=== PATIENT | female | born 1930 | race Caucasian/White ===

== ENCOUNTER → 2016-07-20 | Outpatient (CLI) | payer OTHER, MEDICARE ==
[2016-07-20 12:03] LABS: HEMATOCRIT 39.1 % (37.0-47.0); HEMOGLOBIN 12.8 g/dL (12.0-16.0); MEAN CORPUSCULAR HEMOGLOBIN 28.4 PG (27-31); MEAN CORPUSCULAR HGB CONC 32.7 g/dL (33-37); MEAN PLATELET VOLUME 10.5 FL (7.4-12.2); RDW COEFFICIENT OF VARIATION 14.6 % (11.5-14.5); RED BLOOD COUNT 4.51 10^6/uL (4.20-5.40); WHITE BLOOD COUNT 6.3 10^3/uL (4.8-10.8)
[2016-07-20 12:06] LABS: BLOOD UREA NITROGEN 23 mg/dL (7-22); BUN/CREATININE RATIO 14.37 (6-20); CALCIUM 9.7 mg/dL (8.7-10.7); CHLORIDE 108 meq/L (98-112); CREATININE 1.6 mg/dL (0.50-1.20); GLUCOSE 89 mg/dL (78-110); PHOSPHORUS 4.4 mg/dl (2.4-4.3); POTASSIUM 4.4 meq/L (3.8-5.2); SODIUM 142 meq/L (135-145)
== END ==
LOC: LAB 10:57
PROVIDERS: ATTEND Physician Assistant Medical
DX: I12.9 Hypertensive chronic kidney disease with stage 1 through stage 4 chronic kidney disease, or unspecified chronic kidney disease (principal); N18.3 Chronic kidney disease, stage 3 (moderate); D63.1 Anemia in chronic kidney disease; N25.81 Secondary hyperparathyroidism of renal origin
CPT/HCPCS: 36415; 80069; 83970; 85027

== ENCOUNTER → 2016-11-16 | Outpatient (CLI) | payer OTHER, MEDICARE ==
[2016-11-16 11:58] LABS: HEMOGLOBIN 13.2 g/dL (12.0-16.0); MEAN CORPUSCULAR HEMOGLOBIN 28.6 PG (27-31); MEAN CORPUSCULAR VOLUME 86.8 FL (81-99); MEAN PLATELET VOLUME 10.5 FL (7.4-12.2); RED BLOOD COUNT 4.61 10^6/uL (4.20-5.40)
[2016-11-16 12:12] LABS: BLOOD UREA NITROGEN 15 mg/dL (7-22); CALCIUM 8.9 mg/dL (8.7-10.7); PHOSPHORUS 3.8 mg/dl (2.4-4.3); SERUM ALBUMIN 4.1 g/dL (3.5-4.8)
== END ==
LOC: LAB 11:07
PROVIDERS: ATTEND Physician Assistant Medical
DX: N18.3 Chronic kidney disease, stage 3 (moderate) (principal); D63.1 Anemia in chronic kidney disease; N25.81 Secondary hyperparathyroidism of renal origin
CPT/HCPCS: 36415; 80069; 83970; 85027

== ENCOUNTER → 2016-11-18 | Outpatient (CLI) | payer OTHER, MEDICARE | LOC: MMPC 11:11 | PROVIDERS: ATTEND Internal Medicine | DX: I10 Essential (primary) hypertension (principal); J44.9 Chronic obstructive pulmonary disease, unspecified; E55.9 Vitamin D deficiency, unspecified; E78.5 Hyperlipidemia, unspecified; M81.0 Age-related osteoporosis without current pathological fracture; N18.3 Chronic kidney disease, stage 3 (moderate) | CPT/HCPCS: 99214; G0463 ==

== ENCOUNTER → 2017-01-20 | Outpatient (CLI) | payer OTHER, MEDICARE | LOC: MMPC 10:00 | PROVIDERS: ATTEND Podiatrist Foot & Ankle Surgery | DX: L85.0 Acquired ichthyosis (principal); E11.628 Type 2 diabetes mellitus with other skin complications; L60.3 Nail dystrophy; L60.0 Ingrowing nail | CPT/HCPCS: 11721; 99203 ==

== ENCOUNTER 2017-05-11 11:00 | Inpatient (IN) ==
[2017-05-11] MEDS ORDERED: NORMAL SALINE 10 ML SYRINGE FLUSH IVP PRN ×2 (11:24→16:17)
[2017-05-11] MEDS ORDERED: Sodium Chloride 0.9% 1,000 ML PRIMARY IV ONE (11:24)
[2017-05-11] MEDS ORDERED: ONDANSETRON 4 MG/2 ML VIAL IVP ONE (11:24)
--- NOTE | 2017-05-11 11:35 | PDOC ---
General Adult HPI - General Chief Complaint: Cough / URI Stated Complaint: COUGH, NOT FEELING GOOD Date Seen by Provider: 05/11/17 Time Seen by Provider: 11:20 Source: POSITIVE: Patient, Other (daughter) Exam Limitations: POSITIVE: No limitations Nurse's Notes Reviewed & Considered: Yes - History of Present Illness Initial Comment: The patient is an 86-year-old female who presents to the emergency department with sore throat, cough and general malaise. She has a history of hypertension and chronic renal insufficiency. She states that yesterday she developed a sore throat as well as some general malaise. She also has had increased nasal congestion and drainage in the back of her throat. Last night and this morning she has had some cough which is productive at times. She denies any chest pain or increased shortness of breath. She did have one bout of diarrhea last night. Shortly after arriving in the emergency department she had onset of nausea and emesis. She states that she was feeling chilled at home. She denies any known fever. She denies any associated abdominal pain. Have you received a tetanus shot in the past 10 years?: No - Patient Home Medications Home Medications: Home Medications Levalbuterol Tartrate [Xopenex Hfa] 2 puff INH Q4-6H PRN #1 inh 08/11/16 ipratropium bromide 0.03 % nasal spray 2 spray INASL TID PRN #1 ml 02/16/17 metoprolol succinate ER 25 mg tablet,extended release 24 hr 25 mg PO QHS #90 tab 02/16/17 sertraline 25 mg tablet 25 mg PO QDAY #90 tab 02/16/17 hydralazine 25 mg tablet 25 mg PO TID #180 tab 03/01/17 amlodipine 10 mg tablet 10 mg PO QDAY #90 tab 03/30/17 calcitriol 0.25 mcg capsule 0.25 mcg PO QDAY #90 cap 03/30/17 calcium carbonate 300 mg (750 mg) chewable tablet 300 mg PO QDAY tab 03/30/17 cholecalciferol (vitamin D3) 2,000 unit capsule 2,000 unit PO QDAY #90 cap 03/30 loratadine 10 mg capsule 10 mg PO QDAY cap 03/30/17 pravastatin 40 mg tablet 40 mg PO QDAY #90 tab 03/30/17 - Patient Allergies Allergies/Adverse Reactions: Allergies 3 Allergy/AdvReac Type Severity Reaction Status Date / Time butorphanol tartrate Allergy Severe personality Verified 05/11/17 11:38 [From Stadol] changes, anger codeine [Codeine] Allergy NOT Verified 05/11/17 11:38 APPLICABLE meperidine HCl [From Demerol] Allergy NOT Verified 05/11/17 11:38 APPLICABLE povidone-iodine Allergy NOT Verified 05/11/17 11:38 [From Betadine] APPLICABLE soap [From Betadine] Allergy NOT Verified 05/11/17 11:38 APPLICABLE Past Medical History - heen HEENT History: Macular Degeneration, Cataracts, Other (please comment) Additional HEENT History: cataract surgery Cardiovascular History: Hypertension Respiratory History: COPD Additional Respiratory History: previous smoker, quit 1 year ago Gastrointestinal History: Other (please comment) Additional Gastrointestinal History: DIARRHEA X1 WEEK Genitourinary History: Denies History Additional Genitourinary History: kidney failure Endocrine History: Denies History Musculoskeletal History: Rheumatoid Arthritis Neurological History: Denies History Blood Disorders: Denies History Psychiatric History: Denies History History of Sexually Transmitted Diseases: No Cancer History: Denies History History of MDRO: No History of Other Communicable Diseases: No Alcohol Use: None In the Past 12 Months, Have Used or Abuse Any Substance: None Previous Surgical History: Yes Type / Date of Surgery: GALLBLADDER,APPY, LAP KEE, RIGHT FOOT Anesthesia Reactions: No Significant Family History: No pertinent family hx Past Medical History Reviewed: Reviewed - No Changes ROS - Limitations ROS Limitations: No Limitations Constitution: REPORTS: Chills, Weakness (General weakness and malaise). DENIES : Fever Cardiovascular: DENIES: Chest Pain, Edema Respiratory: REPORTS: Cough Non Productive, Cough Productive. DENIES: Shortness Of Breath Neurological: DENIES: Headache, Numbness, Weakness (No focal weakness) Gastrointestinal: REPORTS: Nausea, Vomitting (1 on arrival here to the emergency room), Diarrhea (1 last night). DENIES: Abdominal Pain, Black Stools , Bloody Stools Musculoskeletal: DENIES: Muscle Aches Eyes: REPORTS: Denies Symptoms ENT: REPORTS: Denies Symptoms Skin: DENIES: Rash General Adult Exam - General Appearance General Appearance: POSITIVE: Alert, Cooperative, No Acute Distress - HEENT HEENT: POSITIVE: Head Inspection Nml, Eyes Inspection Nml, Ears Inspection Nml, Pharynx Inspect. Nml. NEGATIVE: Pharyngeal Erythema, Pharyngeal Exudate - Neck Neck: POSITIVE: Normal Inspection. NEGATIVE: Lymphadenopathy - Respiratory Respiratory: POSITIVE: No Respiratory Distress, Breath Sounds Normal, Other ( Her oxygen saturations were in the upper 80s on room air on arrival and she was placed on O2 per nasal cannula.) - Cardiovascular Cardiovascular: POSITIVE: Regular Rate & Rhythm, No Murmur Peripheral Pulses: Dorsalis-pedis (R): 2+, Dorsalis-pedis (L): 2+ - Abdomen Abdomen: Soft: (All Quadrants), Denies Tenderness: (All Quadrants), No Distention: (All Quadrants) - Skin Skin: POSITIVE: Normal Color, No Rash - Extremities Extremity: Normal ROM: (All Extremities), Normal Inspection: (All Extremities) - Neurological / Psychological Neurological: POSITIVE: Oriented X3, Motor Normal, Sensation Normal, Other (No focal neurologic deficits) General Adult Progress - Results Reviewed by me Xrays/CTs/US Reviewed by me: Yes Radiology Findings: Chest x-ray shows no obvious infiltrate, no acute changes when compared to previous Lab Results Reviewed by Me: Yes CBC and BMP: 05/11/17 12:55 05/11/17 11:24 EKG Interpretation:: POSITIVE: Normal Sinus Rhythm, Normal Rate, Normal QRS, Normal ST/T - Patient's Progress MDM / ED Course: The patient was afebrile on arrival. She was mildly hypoxic with O2 sats in the upper 80s on room air. She was placed on O2 per nasal cannula. Blood cultures and lactate were drawn with initial IV start. EKG shows normal sinus rhythm with no acute ST segment or T-wave changes. Lab work reveals an elevated white count of 17,000. Her creatinine is 2.2 which is down from 2.8 about a month ago. Lactate is normal. Her magnesium is a little bit low at 1.5. Her chest x-ray shows no obvious acute infiltrate however clinically I suspect she has an early pneumonia With hypoxia, elevated white count and productive cough. After blood cultures were drawn the patient did receive Rocephin and Zithromax. She also received 1 g of magnesium IV. I did discuss these findings with the patient and her daughter. At this point I did recommend admission for further treatment. The patient is in agreement with this plan. Dr. Trevizo has agreed to admit the patient for further care. - Consult Counseled: POSITIVE: Patient, Family, RE: Lab Results, RE: Radiology Results, RE : DX Patient Care Time - Estimated PCT Patient Care Time (In Minutes): 35 Vital Signs - Recent Vital Signs Vital Signs: Vital Signs (Last 8 hours) Pulse 05/11/17 11:45 68 - VS Reviewed Vital Signs Reviewed: Yes Discharge Clinical Impression: Pneumonia, Chronic renal failure, Hypoxia, Elevated WBC count Discharge Disposition: Admit to Inpatient Condition: Fair Follow Up With: POLO EDWARDS [Primary Care Provider] - Date Decision to Admit to Inpatient: 05/11/17 Time Decision to Admit to Inpatient: 14:00
--- NOTE | 2017-05-11 11:45 | EKG ---
[address] [address] Measurements Intervals [place] Rate: 68 P: 72 MT: 195 QRS: 69 QRSD: 110 T: 48 QT: 395 QTc: 413 Interpretive Statements WANDERING ATRIAL PACEMAKER WITH OCCASIONAL SUPRAVENTRICULAR PREMATURE COMPLEXES NONSPECIFIC ST-T [id number] Compared to ECG 11/29/2015 11:23:00 ST (T wave) deviation now present Sinus bradycardia no longer present Electronically Signed On 05-11-17 14:44:09 [facility] by Dionicio Romero [email or web address]
[2017-05-11 12:59] LABS: BASOPHILS % (AUTO) 0.5 % (0-1); EOSINOPHILS % (AUTO) 0.9 % (0-8); Hematocrit [HCT] 40.1 % (37.0-47.0); Hemoglobin [HGB] 13.6 g/dL (12.0-16.0); MEAN CORPUSCULAR HEMOGLOBIN 30.2 PG (27-31); MEAN CORPUSCULAR HGB CONC 33.8 g/dL (33-37); MEAN CORPUSCULAR VOLUME 89 FL (81-99); MEAN PLATELET VOLUME 7.9 FL (7.4-12.2); MONOCYTES % (AUTO) 8.5 % (5-15); NEUTROPHILS % (AUTO) 83.9 % (50-80); RED BLOOD COUNT 4.49 10^6/uL (4.20-5.40)
[2017-05-11 13:00] LABS: BASOPHILS # (AUTO) 0 10*3/UL; EOSINOPHILS # (AUTO) 0.15 10*3/UL; LYMPHOCYTES # (AUTO) 1.05 10*3/uL; MONOCYTES # (AUTO) 1.44 10*3/UL (0.3-0.8); NEUTROPHILS # (AUTO) 14.2 10*3/UL; PLATELET MORPHOLOGY COMMENT NORMAL MORPHOLOGY (NORM); RBC MORPHOLOGY COMMENT NORMAL MORPHOLOGY (NORM); WBC MORPHOLOGY COMMENT NORMAL MORPHOLOGY (NORM)
[2017-05-11 13:48] LABS: BLOOD UREA NITROGEN 23 mg/dL (7-22); BUN/CREATININE RATIO 10.45 (6-20)
[2017-05-11 13:49] LABS: MAGNESIUM 1.5 mg/dL (1.6-2.4); SERUM ALBUMIN 4.2 g/dL (3.5-4.8)
[2017-05-11] MEDS ORDERED: cefTRIAXone Inj 2 GM in Sodium Chloride 0.9% 100 ML IV SCH (14:00)
[2017-05-11] MEDS ORDERED: Magnesium Sulfate 1gm (Premix) 1 GM/100 ML BAG IV ONE (14:02)
[2017-05-11] MEDS ORDERED: cefTRIAXone Inj 2 GM in Sodium Chloride 0.9% 100 ML IV ONE (14:02)
--- NOTE | 2017-05-11 14:16 | DI ---
XR CXR 1VW,05/11/2017 11:24 AM: Clinical History: November 29, 2015 Previous Exam: None at this facility. Findings: A single frontal radiograph of the chest is obtained, and demonstrates clear lungs. The cardiomediast inum and bony thorax are unremarkable and unchanged from the prior exam taking into account the fact that this is an AP view rather than the PA view. Impression: No acute disease.
[2017-05-11] MEDS ORDERED: LIDOCAINE W/ SODIUM BICARB 0.5 ML SYR SUBD PRN (16:17)
[2017-05-11] MEDS ORDERED: IPRATROPIUM BROMIDE 0.5 mg/2.5 ML NEB PRN (16:17)
[2017-05-11] MEDS ORDERED: ONDANSETRON 4 MG/2 ML VIAL IVP PRN (16:17)
[2017-05-11] MEDS: CALCIUM CARBONATE 500 MG (TUMS) CHEWABLE TABLET PO SCH (17:00)
[2017-05-11] MEDS: HEPARIN 5000 UNIT/1 ML SUBCUT SCH (17:01)
--- NOTE | 2017-05-11 17:13 | DI ---
CT Chest WO Contrast,05/11/2017 4:17 PM: Clinical History: Cough and shortness of breath. Previous Exam: None at this facility. Findings: Multiple helically acquired CT images are obtained through the chest without contrast, and demonstrat e a complex hypodense mass within the left thyroid lobe. Peripheral vascular calcifications are noted throughout. Degenerative changes of the spine are also seen. Diffuse emphysematous changes are noted as well. There is no evidence of infiltrate nor effusion. A few coronary artery calcifications are seen. The upper abdomen is unremarkable. There is a hiatal hernia noted. Impression: Diffuse emphysematous changes without infiltrate nor effusion. Irregular hypodense mass within the left thyroid lobe. Recommend thyroid ultrasound for further evalu ation. Hiatal hernia.
[2017-05-11] MEDS ORDERED: methylPREDNISolone 125 MG/2 ML VIAL IVP ONE (17:39)
--- NOTE | 2017-05-11 17:39 | PDOC ---
HPI - History of Present Illness History of Present Illness: Very nice 86-year-old female was seen in the ER because of some sore throat and cough and generalized weakness over the last few days she also has chronic renal insufficiency her latest creatinine is 2.2 he was hired a time before also has some increased nasal congestion and drainage nasal drip and occasional cough which is productive breath developed some also nausea and vomiting and decided to be seen in the ER where she was found to have a white count of 17, 000 possible pneumonia on x-ray but on CT scan of the chest are no infiltrates or effusions and no emphysematous changes are most likely it will be a COPD exacerbation Past Medical History Medical History: Hypertension, COPD, allergies, hypercholesterolemia, depression Surgical History: Appendectomy gallbladder removal, surgery on her right foot Family History: Reviewed an Not Pertinent Tobacco Use: Former Smoker In the Past 12 Months, Have Used or Abuse Any of the Following Substance: None Medication / Allergies Home Medications: Home Medications Medication Instructions Recorded Confirmed Type Levalbuterol Tartrate [Xopenex Hfa] 2 puff INH Q4-6H PRN #1 inh 08/11/16 History ipratropium bromide 0.03 % nasal 2 spray INASL TID PRN #1 ml 02/16/17 05/11/17 History spray metoprolol succinate ER 25 mg 25 mg PO QHS #90 tab 02/16/17 05/11/17 Rx tablet,extended release 24 hr sertraline 25 mg tablet 25 mg PO QDAY #90 tab 02/16/17 05/11/17 Rx hydralazine 25 mg tablet 25 mg PO TID #180 tab 03/01/17 05/11/17 Rx amlodipine 10 mg tablet 10 mg PO QDAY #90 tab 03/30/17 05/11/17 Rx calcitriol 0.25 mcg capsule 0.25 mcg PO QDAY #90 cap 03/30/17 05/11/17 Rx calcium carbonate 300 mg (750 mg) 300 mg PO QDAY tab 03/30/17 05/11/17 History chewable tablet cholecalciferol (vitamin D3) 2,000 2,000 unit PO QDAY #90 cap 03/30/17 05/11/17 History unit capsule loratadine 10 mg capsule 10 mg PO QDAY cap 03/30/17 05/11/17 History pravastatin 40 mg tablet 40 mg PO QDAY #90 tab 03/30/17 05/11/17 Rx Allergies/Adverse Reactions: Allergies 3 Allergy/AdvReac Type Severity Reaction Status Date / Time butorphanol tartrate Allergy Severe personality Verified 05/11/17 11:38 [From Stadol] changes, anger codeine [Codeine] Allergy NOT Verified 05/11/17 11:38 APPLICABLE meperidine HCl [From Demerol] Allergy NOT Verified 05/11/17 11:38 APPLICABLE povidone-iodine Allergy NOT Verified 05/11/17 11:38 [From Betadine] APPLICABLE soap [From Betadine] Allergy NOT Verified 05/11/17 11:38 APPLICABLE Review of Systems - Review of Systems All Systems: Reviewed & No Additional Complaints Except as Stated - Respiratory Respiratory: REPORTS: Cough, Dyspnea At Rest - Cardiovascular Cardiovascular: DENIES: Chest Pain, Edema, Syncope - Gastrointestinal Gastrointestinal / Abdominal: REPORTS: Nausea, Vomiting, Diarrhea Exam - Vitals Vital Signs: Vital Signs Temperature 99.1 F Temperature Source Temporal Artery Scan Pulse Rate 87 Respiratory Rate 17 Blood Pressure 179/62 Pulse Ox 94 Oxygen Flow Rate 3 Oxygen Delivery Method Nasal Cannula Height 5 ft Weight 142 lb 12.8 oz - General General Appearance: No Acute Distress, Cooperative - Neck Neck Exam: Normal Inspection, Full ROM, No Tenderness, No Lymphadenopathy, No Thyromegaly, JVP is not Raised - Respiratory Respiratory Exam: POSITIVE: Decreased Breath Sounds - Cardiovascular Cardiovascular Exam: POSITIVE: RRR, No Murmur, No Clicks, No Gallops, No Rubs, PMI Non-Displaced - GI/Abdominal GI/Abdominal Exam: POSITIVE: Normal Bowel Sounds, Non Tender, Non Distended, Soft, No Masses, No Hepatomegaly, No Splenomegaly, No Organomegaly - Extremities Extremities Exam: POSITIVE: Normal Inspection, Full ROM, Normal Capillary Refill , No Clubbing Present, No Edema Present, No Cyanosis Present, Negative Mt's sign, Dosalis Pedis Pulses - Stong & Regular Results - Labs CBC and BMP: 05/11/17 12:55 05/11/17 11:24 Assessment and Plan - Patient Problems (1) Chronic renal failure Current Visit: Yes Status: Acute Comment: We'll hydrate the patient with normal saline C breathing at this improved a little bit Code(s): N18.9 - Chronic kidney disease, unspecified (2) Elevated WBC count Current Visit: Yes Status: Acute Comment: Most likely secondary to COPD exacerbation Code(s): D72.829 - Elevated white blood cell count, unspecified (3) Abnormal CT scan, chest Current Visit: No Status: Acute Onset Date: 08/23/14 Comment: Visit with this changes no pneumonia or infiltrate Code(s): R93.8 - Abnormal findings on diagnostic imaging of other specified body structures (4) COPD exacerbation Current Visit: Yes Status: Acute Comment: Continue steroids on top of antibiotics Code(s): J44.1 - Chronic obstructive pulmonary disease with (acute) exacerbation
[2017-05-11] MEDS: FLUTICASONE/SALMETEROL 250/50 UD INHALER INH SCH (18:58)
[2017-05-11] MEDS: METOPROLOL SUCCINATE 25 MG SR 24H TABLET PO SCH (20:35)
[2017-05-11] MEDS: FLUTICASONE 50 MCG ENOS SCH (20:35)
[2017-05-12] MEDS: HEPARIN 5000 UNIT/1 ML SUBCUT SCH ×3 (01:01→16:22)
[2017-05-12] MEDS: FLUTICASONE/SALMETEROL 250/50 UD INHALER INH SCH ×2 (06:49→18:49)
[2017-05-12 07:04] LABS: Hematocrit [HCT] 37.7 % (37.0-47.0); Hemoglobin [HGB] 12.6 g/dL (12.0-16.0); MEAN CORPUSCULAR HEMOGLOBIN 29.8 PG (27-31); MEAN CORPUSCULAR HGB CONC 33.5 g/dL (33-37); MEAN CORPUSCULAR VOLUME 89 FL (81-99); MEAN PLATELET VOLUME 8.2 FL (7.4-12.2); RED BLOOD COUNT 4.24 10^6/uL (4.20-5.40)
[2017-05-12 07:05] LABS: BAND NEUTROPHILS % 0 % (0-10); BASOPHILS % (MANUAL) 0 % (0-1); BLOOD UREA NITROGEN 28 mg/dL (7-22); EOSINOPHILS % (MANUAL) 0 % (0-8); MONOCYTES % (MANUAL) 1 % (0-12); NEUTROPHILS % (MANUAL) 95 % (50-80); PLATELET MORPHOLOGY COMMENT NORMAL MORPHOLOGY (NORM); RBC MORPHOLOGY COMMENT NORMAL MORPHOLOGY (NORM); WBC MORPHOLOGY COMMENT NORMAL MORPHOLOGY (NORM)
--- NOTE | 2017-05-12 08:25 | PDOC(PROG) ---
Objective : Data - Labs CBC and BMP: 05/12/17 06:35 05/12/17 06:35 Assessment and Plan - Patient Problems (1) Chronic renal failure Current Visit: Yes Status: Acute Comment: That any little worse today I will stop IV fluids with potassium and it and start normal saline 75 an hour Code(s): N18.9 - Chronic kidney disease, unspecified (2) Elevated WBC count Current Visit: Yes Status: Acute Comment: Improving Code(s): D72.829 - Elevated white blood cell count, unspecified (3) Abnormal CT scan, chest Current Visit: No Status: Acute Onset Date: 08/23/14 Comment: Most likely emphysema COPD exacerbation Code(s): R93.8 - Abnormal findings on diagnostic imaging of other specified body structures (4) COPD exacerbation Current Visit: Yes Status: Acute Comment: Continue steroids antibiotics and inhalers Code(s): J44.1 - Chronic obstructive pulmonary disease with (acute) exacerbation
[2017-05-12] MEDS: Sertraline Tab 50 MG TAB PO SCH (09:15)
[2017-05-12] MEDS: predniSONE Tab 20 MG TAB PO SCH (09:15)
[2017-05-12] MEDS: CALCITRIOL 0.25 MCG CAPSULE PO SCH (09:16)
[2017-05-12] MEDS: LORATADINE 10 MG TABLET PO SCH (09:17)
[2017-05-12] MEDS: Sodium Chloride 0.9% 1,000 ML IV SCH (09:30)
[2017-05-12] MEDS: CHOLECALCIFEROL 1000 IU TABLET PO SCH (09:49)
[2017-05-12] MEDS ORDERED: DEXTROSE 50%-WATER SYRINGE 50 ML SYRINGE IVP PRN (12:18)
[2017-05-12] MEDS ORDERED: Glucagon Inj Vial 1 MG/ML VIAL IM PRN (12:18)
[2017-05-12] MEDS ORDERED: DEXTROSE 31 GM GEL PO PRN (12:18)
[2017-05-12] MEDS ORDERED: Insulin Sliding Scale Protocol SUBCUT PRN (12:18)
[2017-05-12] MEDS ORDERED: SODIUM CHLORIDE 0.9% IV SCH (14:30)
[2017-05-12] MEDS ORDERED: cefTRIAXone Inj 2 GM in Sodium Chloride 0.9% 100 ML IV SCH (14:30)
[2017-05-12] MEDS ORDERED: CEFTRIAXONE IV SCH (14:30)
[2017-05-12] MEDS ORDERED: Insulin Lispro Flexpen 300 UNIT/3 ML INSULN.PEN SUBCUT SCH ×2 (16:00→16:30)
[2017-05-12] MEDS: CALCIUM CARBONATE 500 MG (TUMS) CHEWABLE TABLET PO SCH (17:23)
[2017-05-12] MEDS: METOPROLOL SUCCINATE 25 MG SR 24H TABLET PO SCH (20:54)
[2017-05-12] MEDS: FLUTICASONE 50 MCG ENOS SCH (20:55)
[2017-05-13] MEDS: HEPARIN 5000 UNIT/1 ML SUBCUT SCH ×2 (00:33→10:20)
[2017-05-13] MEDS: Sodium Chloride 0.9% 1,000 ML IV SCH (01:52)
[2017-05-13] MEDS: LEVALBUTEROL TARTRATE INH PRN ×2 (01:59→06:15)
[2017-05-13] MEDS: FLUTICASONE/SALMETEROL 250/50 UD INHALER INH SCH (06:17)
[2017-05-13 06:47] LABS: BLOOD UREA NITROGEN 42 mg/dL (7-22); BUN/CREATININE RATIO 16.15 (6-20); SERUM ALBUMIN 3.5 g/dL (3.5-4.8)
[2017-05-13 07:06] LABS: Hematocrit [HCT] 38.9 % (37.0-47.0); Hemoglobin [HGB] 12.9 g/dL (12.0-16.0); MEAN CORPUSCULAR HEMOGLOBIN 29.9 PG (27-31); MEAN CORPUSCULAR HGB CONC 33.3 g/dL (33-37); MEAN CORPUSCULAR VOLUME 90 FL (81-99); MEAN PLATELET VOLUME 8.8 FL (7.4-12.2); RED BLOOD COUNT 4.33 10^6/uL (4.20-5.40)
[2017-05-13] MEDS ORDERED: FUROSEMIDE 10 MG/1 ML - 2 ML VIAL IVP STA (07:07)
[2017-05-13] MEDS ORDERED: methylPREDNISolone 125 MG/2 ML VIAL IVP ONE (07:07)
[2017-05-13] MEDS ORDERED: LIDOCAINE HCL 2 % 10 ML JELLY URO-JECT TOPICAL PRN (07:27)
[2017-05-13] MEDS ORDERED: LORazepam 2 MG/1 ML VIAL IVP STA (07:48)
[2017-05-13] MEDS ORDERED: SODIUM CHLORIDE 0.9% IV ONE ×2 (08:00)
[2017-05-13] MEDS ORDERED: SODIUM BICARB IV ONE ×2 (08:00)
[2017-05-13 08:12] LABS: VENOUS PH 7.13 (7.32-7.42)
[2017-05-13] MEDS ORDERED: LORazepam 2 MG/1 ML VIAL IVP PRN (08:46)
--- NOTE | 2017-05-13 08:52 | PDOC(PROG) ---
Interval History: Patient in respiratory distress to this morning. It speak with family and patient if necessary would like to be intubated. She is comfortable at present time Ativan really worked she stop fighting the BiPAP oxygenation is better on BiPAP machine. Objective : Data - Labs CBC and BMP: 05/13/17 05:50 05/13/17 05:50 Objective : Exam - Respiratory Respiratory Exam: Decreased Breath Sounds - Cardiovascular Cardiovascular Exam: Tachycardia - GI/Abdominal GI/Abdominal Exam: Normal Bowel Sounds, Non Tender, Non Distended, Soft, No Masses, No Hepatomegaly, No Splenomegaly, No Organomegaly Assessment and Plan - Patient Problems (1) Respiratory failure Current Visit: Yes Status: Acute Comment: Patient is well. Chronic renal failure acute on chronic with low bicarbonate and COPD exacerbation was in respiratory distress this morning with low sats and most likely a long-standing compensate for the low bicarbonates in the kidneys trying to blow out CO2 but not strong enough with the underlying emphysema. CT scan of the chest initially on admission revealed emphysema no pneumonia influenza a MB are negative patient is doing much better now on BiPAP especially with the Ativan on board she is not fighting it I'll also hung 2 A of bicarbonate and IV fluids hopefully this will help we will repeat VBG she's had the BiPAP on now for 1 hour. I discussed the case with the family if needed B she is willing to be transferred to [place] once stable enough scopes a case with Tena and general respiratory therapy patient and daughter Code(s): J96.90 - Respiratory failure, unspecified, unspecified whether with hypoxia or hypercapnia (2) Chronic renal failure Current Visit: Yes Status: Acute Code(s): N18.9 - Chronic kidney disease, unspecified (3) Elevated WBC count Current Visit: Yes Status: Acute Code(s): D72.829 - Elevated white blood cell count, unspecified (4) Abnormal CT scan, chest Current Visit: No Status: Acute Onset Date: 08/23/14 Code(s): R93.8 - Abnormal findings on diagnostic imaging of other specified body structures (5) COPD exacerbation Current Visit: Yes Status: Acute Code(s): J44.1 - Chronic obstructive pulmonary disease with (acute) exacerbation (6) Respiratory acidosis Current Visit: Yes Status: Acute Code(s): E87.2 - Acidosis
[2017-05-13] MEDS ORDERED: Magnesium Sulfate 2gm (Premix) 2 GM/50 ML BAG IV ONE (08:53)
[2017-05-13 09:07] LABS: VENOUS PH 7.13 (7.32-7.42)
[2017-05-13 09:11] VITALS: TEMP 97.3
[2017-05-13 09:17] LABS: BLOOD UREA NITROGEN 43 mg/dL (7-22); BUN/CREATININE RATIO 15.35 (6-20); SERUM ALBUMIN 3.6 g/dL (3.5-4.8)
[2017-05-13 09:29] LABS: Hematocrit [HCT] 37.9 % (37.0-47.0); Hemoglobin [HGB] 12.5 g/dL (12.0-16.0); MEAN CORPUSCULAR HEMOGLOBIN 29.6 PG (27-31); MEAN CORPUSCULAR VOLUME 90 FL (81-99); MEAN PLATELET VOLUME 8.6 FL (7.4-12.2); RED BLOOD COUNT 4.23 10^6/uL (4.20-5.40)
[2017-05-13 09:30] LABS: PLATELET MORPHOLOGY COMMENT NORMAL MORPHOLOGY (NORM); RBC MORPHOLOGY COMMENT NORMAL MORPHOLOGY (NORM); WBC MORPHOLOGY COMMENT NORMAL MORPHOLOGY (NORM)
[2017-05-13 09:31] LABS: BAND NEUTROPHILS % 4 % (0-10); BASOPHILS % (MANUAL) 0 % (0-1); EOSINOPHILS % (MANUAL) 0 % (0-8); MONOCYTES % (MANUAL) 4 % (0-12); NEUTROPHILS % (MANUAL) 86 % (50-80)
[2017-05-13] MEDS: predniSONE Tab 20 MG TAB PO SCH (10:20)
[2017-05-13] MEDS: CALCITRIOL 0.25 MCG CAPSULE PO SCH (10:20)
[2017-05-13] MEDS: LORATADINE 10 MG TABLET PO SCH (10:21)
[2017-05-13] MEDS: Sertraline Tab 50 MG TAB PO SCH (10:25)
[2017-05-13] MEDS: CHOLECALCIFEROL 1000 IU TABLET PO SCH (10:25)
[2017-05-13 10:42] VITALS: BP 159/47; RESP 15; O2SAT 94
[2017-05-13] MEDS: SODIUM BICARBONATE 8.4% - 50 ML VIAL IVP SCH ×2 (10:50→11:24)
[2017-05-13] MEDS ORDERED: Sodium Chloride 0.9% 500 ML ONE (11:10)
[2017-05-13] MEDS ORDERED: HEPARIN 500 UNIT/5 ML SYRINGE FOR CENTRAL LINE IVP ONE (11:30)
[2017-05-13] MEDS ORDERED: fentaNYL Inj 100 MCG/2 ML VIAL ONE (11:33)
[2017-05-13] MEDS ORDERED: Diazepam Inj (ETOH withdrawal)10 MG/2 ML CARPUJECT ONE (11:33)
[2017-05-13] MEDS ORDERED: DIAZEPAM 10 MG/2 ML (5 MG/1 ML) CARPUJECT IVP ONE (11:35)
[2017-05-13] MEDS ORDERED: Propofol 1,000 MG/100 ML VIAL IV SCH (11:45)
[2017-05-13] MEDS ORDERED: Lidocaine Inj 1% 20 ML ONE (11:49)
[2017-05-13 12:19] LABS: COLLECTION SITE LEFT RADIAL
[2017-05-13 12:20] LABS: ABG BASE EXCESS -6 MMOL/L (-2-2); ABG OXYGEN SATURATION 100 % (90-100); ABG PCO2 26 MMHG (34-38); ABG PH 7.44 (7.35-7.45); ABG PO2 166 MMHG (65-75); ALLEN TEST YES
[2017-05-13] MEDS ORDERED: VECURONIUM BROMIDE 10 MG VIAL IV ONE (13:00)
[2017-05-13] MEDS ORDERED: ETOMIDATE 2 MG/1 ML - 20 ML IVP ONE (13:00)
[2017-05-13] MEDS ORDERED: MIDAZOLAM 5 MG/1 ML IVP ONE (13:00)
--- NOTE | 2017-05-13 13:01 | PROCEDURE1 ---
Procedure - - Date and Time of Service: 05/13/2017, 1302 Procedure Performed: Central Line : Non Tunneled Procedure Note: Procedure performed: Right Internal jugular central venous catheter placement Indication for procedure: [Respiratory failure, possible sepsis], with risks discussed as possible arterial puncture, pneumothorax, and localized pain. Benefits for medication administration, blood draws, hemodynamic monitoring, and management of [ respiratory failure, possible sepsis]. Description of procedure: The patient was prepped and draped in the usual fashion with a full body drape. Ultrasound guidance was used to identify the [vein]. The area was cleansed with chlorhexidine. Lidocaine was used for local anesthesia. Using an introducer needle attached to a 5 mL syringe, this was inserted and angled towards the ipsilateral nipple, with ultrasound guidance as well. There was a flash of venous blood as the internal jugular vein was cannulated via the introducer needle. A guidewire was inserted through the needle into the internal jugular vein and the needle was removed over the wire. [A 10 blade was then used to perform a small dermatotomy at the needle insertion site.] The venous dilator was then placed over the guidewire using Seldinger technique , and then removed. 3 port central venous catheter was then placed over the guidewire inserted into the internal jugular vein and the guidewire was removed. All ports were flushed with normal saline and heparin. However, on chest x-ray, the line had actually gone superior, and that line was pulled. The same procedure was attempted on the right with unsuccessful canalization of the jugular vein. After attempts on the right and the left, the procedure was aborted. I had to place 2 6-0 Prolene sutures on the right neck to finally control bleeding on the puncture sites on the right. Hemostasis is now achieved. Complications: [As above, unsuccessful canalization. On the left internal jugular vein, the catheter curled upwards for some reason, and that was removed.] Disposition: [Patient is in critical condition. She is being transferred to [facility] to ICU.]
[2017-05-13] MEDS ORDERED: D5W IV SCH ×2 (13:30)
[2017-05-13] MEDS ORDERED: SODIUM BICARB IV SCH ×2 (13:30)
--- NOTE | 2017-05-13 13:31 | DCSUMMARY ---
Hospitalization Summary Admit Date: 05/11/2017 Discharge Date: 05/13/17 Primary Diagnosis:: respiratory failure Secondary Diagnosis:: COPD exacerbation Hospital Course: This is an 86-year-old female that was admitted with shortness of breath and symptoms consistent with possible pneumonia. CT scan of the chest did not reveal any pneumonia. She had emphysematous changes and no evidence of pleural effusion. She had renal failure as well, chronic renal insufficiency but her kidney function worsened, her breathing status worsened and on the morning of , the patient went into respiratory failure. BiPAP was attempted, but did not really help the patient's pH. She was altered and her white blood cell count went up to over 30,000, and her creatinine worsened to 2.8. She had minimal urine output of 300 mL's over the last 48 hours recorded. Given this constellation of findings, I explored transferring the patient. patient was stabilized on BiPAP, I did discuss with the shipping and receiving at [facility], and they suggested intubating the patient. We did that and called in the second blood gas with settings currently at a PEEP of 5, rate of 15, tidal volume of 300, and FiO2 now turned down from 100%. I tried to place a central line as we only had a 24-gauge peripheral IV access. My note is separate of interventions for intubation. She was intubated under rapid sequence intubation with vecuronium, etomidate, and Versed. She remains on a Diprivan drip. Thus far, no clear sign of infection with negative blood cultures, negative influenza workup, negative strep pneumoniae antigen, and a negative workup for pneumonia thus far. I had to place 2 small 6-0 Prolene sutures on the right neck at puncture site for attempt at cannulization of right internal jugular vein. Hemostasis was achieved. Overall, her biggest problem is her respiratory failure, COPD exacerbation which was treated with Rocephin, steroids, and Zithromax. This is in addition to interventions to support breathing. I discussed with nephrology as well and it was suggested put her on a bicarbonate drip and we are setting that up and she will transfer with that. D5W with 3 A of bicarbonate. Her creatinine increased from a baseline of around 2.2-2.8 today. The patient is full code. Exam - Vitals Vital Signs: Vital Signs Temperature 97.3 F Temperature Source Temporal Artery Scan Pulse Rate [Apical] 105 Pulse Rate [Pulse Oximeter] 78 Pulse Rate 104 Respiratory Rate 15 Blood Pressure [Right Arm] 159/47 Blood Pressure 179/62 Pulse Ox 94 Oxygen Flow Rate 50% Oxygen Delivery Method Bi-PAP Height 5 ft Weight 147 lb 6.4 oz - Head Head Exam: Normocephalic, Atraumatic - Eye Eye Exam: POSITIVE: No Scleral Icterus - ENT ENT Exam: POSITIVE: Mucous Membranes Moist - Neck Neck Exam: Normal Inspection - Respiratory Respiratory Exam: POSITIVE: Breathing Non Labored (On ventilator.), Coarse Breath Sounds - Cardiovascular Cardiovascular Exam: POSITIVE: RRR, No Murmur, No Clicks, No Gallops, No Rubs, No JVD Additional Cardiovascular Details: Barrel chested - GI/Abdominal GI/Abdominal Exam: POSITIVE: Normal Bowel Sounds, Non Tender, Non Distended, Soft - Extremities Extremities Exam: POSITIVE: No Edema Present, No Cyanosis Present - Neurological Additional Neurological Exam Details: The patient was alert on my initial exam when on BiPAP, but confused and altered. She is currently sedated on a ventilator. Data Peritnent Studies: 05/13/17 05/13/17 05/13/17 09:06 09:06 09:06 WBC 30.9 H* RBC 4.23 Hgb 12.5 Hct 37.9 MCV 90 MCH 29.6 MCHC 33.0 RDW Coeff of Ishaan 14.8 H Plt Count 210 MPV 8.6 Neutrophils % (Manual) 86 H Band Neutrophils % 4 Lymphocytes % (Manual) 6 L Monocytes % (Manual) 4 Eosinophils % (Manual) 0 Basophils % (Manual) 0 ABG pH ABG pCO2 ABG pO2 ABG HCO3 ABG Total CO2 ABG O2 Saturation ABG Base Excess Sodium 141 Potassium 5.4 H Chloride 114 H Carbon Dioxide 15 L BUN 43 H Creatinine 2.8 H Glucose 129 H Calcium 9.4 Magnesium 1.9 Total Bilirubin 0.2 L AST 43 H ALT 54 H Alkaline Phosphatase 69 Total Protein 6.4 Albumin 3.6 Globulin 2.8 Albumin/Globulin Ratio 1.20 L 05/13/17 12:03 WBC RBC Hgb Hct MCV MCH MCHC RDW Coeff of [place]aan Plt Count MPV Neutrophils % (Manual) Band Neutrophils % Lymphocytes % (Manual) Monocytes % (Manual) Eosinophils % (Manual) Basophils % (Manual) ABG pH 7.44 ABG pCO2 26 L ABG pO2 166 H ABG HCO3 18 L ABG Total CO2 19 L ABG O2 Saturation 100 ABG Base Excess -6 L Sodium Potassium Chloride Carbon Dioxide BUN Creatinine Glucose Calcium Magnesium Total Bilirubin AST ALT Alkaline Phosphatase Total Protein Albumin Globulin Albumin/Globulin Ratio [address] [facility] [place] [address] PH: DD: [phone] FAX: [phone] ~DIAGNOSTIC IMAGING REPORT~ Patient: SARABJIT DUNN NOVEMBER : 1930 Sex: F Age: 86 Exam Name: CT Chest WO Contrast Exam Date: 05/11/17 Report # : [id number] CPT Code: 95749 EMR/MR #: [id number] Ordering: VERONIQUE ENCARNACION Admiting: VERONIQUE ENCARNACION MD. Primary: Chang Tello MD Attending: VERONIQUE ENCARNACION MD. Signed CT Chest WO Contrast,05/11/2017 4:17 PM: Clinical History: Cough and shortness of breath. Previous Exam: None at this facility. Findings: Multiple helically acquired CT images are obtained through the chest without contrast, and demonstrate a complex hypodense mass within the left thyroid lobe. Peripheral vascular calcifications are noted throughout. Degenerative changes of the spine are also seen. Diffuse emphysematous changes are noted as well. There is no evidence of infiltrate nor effusion. A few coronary artery calcifications are seen. The upper abdomen is unremarkable. There is a hiatal hernia noted. Impression: Diffuse emphysematous changes without infiltrate nor effusion. Irregular hypodense mass within the left thyroid lobe. Recommend thyroid ultrasound for further evaluation. Hiatal hernia. Dictated By: 05/11/17 1704 GLENYS HAHN MD. Signed By: 05/11/17 1713 GLENYS HAHN MD. Procedures: [address] [place] [address] FAX: [phone] Procedure Note Patient: SARABJIT DUNN NOVEMBER : 1930 Age/Sex: 86 / F Admission Date: 05/11/17 Admitting Provider: VERONIQUE ENCARNACION MD. Attending Provider: VERONIQUE ENCARNACION MD. Procedure - - Date and Time of Service: 05/13/2017, 1302 Procedure Performed: Central Line : Non Tunneled Procedure Note: Procedure performed: Right Internal jugular central venous catheter placement Indication for procedure: [Respiratory failure, possible sepsis], with risks discussed as possible arterial puncture, pneumothorax, and localized pain. Benefits for medication administration, blood draws, hemodynamic monitoring, and management of [ respiratory failure, possible sepsis]. Description of procedure: The patient was prepped and draped in the usual fashion with a full body drape. Ultrasound guidance was used to identify the [vein]. The area was cleansed with chlorhexidine. Lidocaine was used for local anesthesia. Using an introducer needle attached to a 5 mL syringe, this was inserted and angled towards the ipsilateral nipple, with ultrasound guidance as well. There was a flash of venous blood as the internal jugular vein was cannulated via the introducer needle. A guidewire was inserted through the needle into the internal jugular vein and the needle was removed over the wire. [A 10 blade was then used to perform a small dermatotomy at the needle insertion site.] The venous dilator was then placed over the guidewire using Seldinger technique , and then removed. 3 port central venous catheter was then placed over the guidewire inserted into the internal jugular vein and the guidewire was removed. All ports were flushed with normal saline and heparin. However, on chest x-ray, the line had actually gone superior, and that line was pulled. The same procedure was attempted on the right with unsuccessful canalization of the jugular vein. After attempts on the right and the left, the procedure was aborted. I had to place 2 6-0 Prolene sutures on the right neck to finally control bleeding on the puncture sites on the right. Hemostasis is now achieved. Complications: [As above, unsuccessful canalization. On the left internal jugular vein, the catheter curled upwards for some reason, and that was removed.] Disposition: [Patient is in critical condition. She is being transferred to [facility] to ICU.] DRAFT COPY UNLESS ELECTRONICALLY or MANUALLY SIGNED BY AUTHOR(S) OF DOCUMENT <Electronically signed by THOMAS MONTESINOS DO> 05/13/17 [id number] cc: Patient Problems - Patient Problem List (1) Respiratory failure Current Visit: Yes Status: Acute Code(s): J96.90 - Respiratory failure, unspecified, unspecified whether with hypoxia or hypercapnia Qualifiers: Chronicity: acute Respiratory failure complication: hypoxia Qualified Code(s): J96.01 - Acute respiratory failure with hypoxia Category: Medical (2) COPD exacerbation Current Visit: Yes Status: Acute Code(s): J44.1 - Chronic obstructive pulmonary disease with (acute) exacerbation Category: Medical (3) Acute renal failure Current Visit: Yes Status: Acute Code(s): N17.9 - Acute kidney failure, unspecified Qualifiers: Acute renal failure type: unspecified Qualified Code(s): N17.9 - Acute kidney failure, unspecified Category: Medical (4) Diabetes mellitus, type 2 Current Visit: Yes Status: Chronic Comment: diet-controlled Qualifiers: Diabetes mellitus complication status: without complication Category: Medical (5) Benign hypertension Current Visit: Yes Status: Chronic Category: Medical
[2017-05-13] MEDS ORDERED: fentaNYL Inj 250 MCG/5 ML VIAL IVP ONE (13:42)
== END 2017-05-13 14:09 | disposition short-term general hospital (02) | DRG 189 ==
LOC: ER 11:00 → MED/SURG 16:02
PROVIDERS: ADMIT Internal Medicine; ATTEND Internal Medicine

== ENCOUNTER 2018-06-16 10:59 | Inpatient (IN) ==
[2018-06-16] MEDS ORDERED: LIDOCAINE HCL 2 % 10 ML JELLY URO-JECT TOPICAL PRN (11:16)
[2018-06-16] MEDS ORDERED: LIDOCAINE W/ SODIUM BICARB 0.5 ML SYR SUBD PRN (11:16)
[2018-06-16] MEDS ORDERED: Non-Formulary Drug (Cetirizine Hcl [Wal-Zyr] 10 MG) PO PRN (11:20)
[2018-06-16] MEDS ORDERED: Non-Formulary Drug (Fluticasone/Vilanterol [Breo Ellipta 200-25 Mcg Inh] 1 INH) INH SCH (11:30)
[2018-06-16] MEDS ORDERED: CALCIUM CARBONATE 300 MG PO SCH (11:30)
--- NOTE | 2018-06-16 11:47 | EKG ---
[address] [address] Measurements Intervals [place] Rate: 78 P: CT: 0 QRS: 34 QRSD: 104 T: 25 QT: 388 QTc: 422 Interpretive Statements ATRIAL FIBRILLATION LOW QRS VOLTAGE IN EXTREMITY LEADS POSSIBLE ANTERIOR MYOCARDIAL INFARCTION PROBABLY OLD,MAY BE LEAD POSITIONING ABNORMAL RHYTHM ECG Compared to ECG 06/04/2018 14:30:30 Low QRS voltage now present Myocardial infarct finding now present T-wave abnormality no longer present Possible ischemia no longer present Electronically Signed On 06-16-18 18:49:23 [facility] by Dionicio Romero [email or web address]
--- NOTE | 2018-06-16 15:57 | PDOC ---
HPI - History of Present Illness Date of Service: 06/16/18 Time of Service: 15:51 Chief Complaint: Shortness of breath History of Present Illness: This very pleasant 87-year-old female with known aortic insufficiency, paroxysmal and intermittent atrial fibrillation noted on today's EKG as well as when she came in with her hip fracture, recent hip fracture status post ORIF with right milvia-arthroplasty, amongst other medical conditions, including COPD, who was admitted yesterday to the swing bed for PT and OT from her hip fracture but had persistent shortness of breath. The shortness breath at the [facility] was diagnosis congestive heart failure and she is placed on Lasix 20 mg by mouth twice a day. Wright catheter had been in place for diuresis. The patient was persistently short of breath even at rest. She cannot really do a lot of physical activity due to the significant shortness of breath. Her troponin is minimally elevated at 0.048. She has a chest x-ray that consistent with bilateral pleural effusions and probable congestive heart failure. She was recently treated for pneumonia at [facility] for 5 days with Rocephin and Zithromax. I did have an EKG done and she is in atrial fibrillation with a controlled ventricular response at this time. An echocardiogram 2017 showed aortic insufficiency but a normal ejection fraction. No evidence of diastolic dysfunction on that study. At this time we are readmitting her to the inpatient side to evaluate for congestive heart failure and treat as I think the patient probably would benefit from a thoracentesis based on the side of her right-sided pleural effusion on my view of the chest x- ray. The patient cannot lay flat and that makes her shortness breath significantly worse. She does not have a lot of edema in her lower extremities. Past Medical History Medical History: 1. Hypertension. 2. COPD. 3. Allergies. 4. hypercholesterolemia. 5. depression. 6. History of acute on chronic renal failure was transferred to [facility] in 2016. 7. Chronic renal failure, baseline creatinine around 1.9 or so. 8. Admission in May 2017 secondary to pneumonia that caused respiratory failure ended up on a ventilator was transferred to [facility]. 9. Osteoporosis. 10. Recently diagnosed atrial fibrillation that appears to be chronic and intermittent not on any anticoagulants therapy as of yet. Surgical History: Appendectomy gallbladder removal, surgery on her right foot Family History: Reviewed an Not Pertinent Pertinent Family History: Mother of stomach cancer Past Social History: She used to smoke quit 3 years ago, rarely drinks, no drugs. Lives by herself. Her daughter, Cat, is her power of litigation attorney. Tobacco Use: Former Smoker (Quit 3 years ago) In the Past 12 Months, Have Used or Abuse Any of the Following Substance: None Alcohol Use: Occasionally Medication / Allergies Home Medications: Home Medications Medication Instructions Recorded Confirmed Type calcitriol 0.25 mcg capsule 0.25 mcg PO QDAY #90 cap 03/30/17 06/04/18 Rx calcium carbonate 300 mg (750 mg) 300 mg PO QDAY tab 03/30/17 06/04/18 History chewable tablet cholecalciferol (vitamin D3) 2,000 2,000 unit PO QDAY #90 cap 03/30/17 06/04/18 History unit capsule Amlodipine Besylate 10 mg PO QDAY #90 tab 06/12/17 06/04/18 Rx cetirizine 10 mg capsule 10 mg PO QDAY PRN #30 cap 06/18/17 06/04/18 Rx ferrous gluconate 324 mg (38 mg 324 mg PO BID #60 tab 06/18/17 06/04/18 Rx iron) tablet levalbuterol HFA 45 mcg/actuation 2 puff INH Q4-6H PRN #1 inh 06/18/17 06/04/18 Rx aerosol inhaler metoprolol succinate ER 25 mg 25 mg PO QHS #90 tab 08/25/17 06/04/18 Rx tablet,extended release 24 hr fluticasone 200 mcg-vilanterol 25 1 inh INH QDAY #28 ea 11/25/17 06/04/18 Rx mcg/dose powder for inhalation ipratropium bromide 42 mcg (0.06 2 spray INASL QID #15 ml 11/25/17 06/04/18 Rx %) nasal spray donepezil 5 mg tablet 5 mg PO QDAY #90 tab 03/31/18 06/04/18 Rx hydralazine 100 mg tablet 100 mg PO BID tab 03/31/18 06/04/18 History pravastatin 40 mg tablet 40 mg PO QDAY #90 tab 04/08/18 06/04/18 Rx sertraline 25 mg tablet 25 mg PO QDAY #90 tab 04/08/18 06/04/18 Rx Allergies/Adverse Reactions: Allergies Allergy/AdvReac Type Severity Reaction Status Date / Time butorphanol tartrate Allergy Severe personality Verified 06/04/18 18:13 [From Stadol] changes, anger codeine [Codeine] Allergy NOT Verified 06/04/18 18:13 APPLICABLE meperidine HCl [From Demerol] Allergy NOT Verified 06/04/18 18:13 APPLICABLE povidone-iodine Allergy NOT Verified 06/04/18 18:13 [From Betadine] APPLICABLE soap [From Betadine] Allergy NOT Verified 06/04/18 18:13 APPLICABLE Review of Systems - Constitutional Constitutional: REPORTS: Weakness - Respiratory Respiratory: REPORTS: Cough, Dyspnea with Exertion, Other (Dyspnea at rest worse when laying flat) - Cardiovascular Cardiovascular: REPORTS: Negative System Review - Gastrointestinal Gastrointestinal / Abdominal: REPORTS: Negative System Review - Genitourinary Genitourinary: REPORTS: Negative System Review - Musculoskeletal Musculoskeletal: REPORTS: Other (Right hip pain status post recent fracture) - Neurological Neurologic: REPORTS: Memory Loss (Recently reported in the clinic to have had memory problems) Exam - Vitals Vital Signs: Vital Signs Temperature 97.9 F Temperature Source Oral Pulse Rate [Pulse Oximeter] 77 Respiratory Rate 20 Blood Pressure [Right Arm] 149/40 Pulse Ox 92 Oxygen Flow Rate 3 Oxygen Delivery Method Nasal Cannula - General General Appearance: No Acute Distress, Cooperative - Head Head Exam: Normal Inspection, Normocephalic, Atraumatic - Eye Eye Exam: POSITIVE: No Scleral Icterus - ENT ENT Exam: POSITIVE: Mucous Membranes Moist - Neck Neck Exam: JVP is not Raised - Respiratory Respiratory Exam: POSITIVE: Breathing Non Labored, Decreased Breath Sounds (Particularly in the bases), Respiratory Distress (She is breathing at a mildly labored rate in bed. She is clearly short of breath even at rest.) - Cardiovascular Cardiovascular Exam: POSITIVE: RRR, No Murmur, No Clicks, No Gallops, No Rubs, No JVD - GI/Abdominal GI/Abdominal Exam: POSITIVE: Normal Bowel Sounds, Non Tender, Non Distended, So ft - Rectal Rectal Exam: POSITIVE: Deferred - External Exam: POSITIVE: Deferred Exam: POSITIVE: Deferred - Extremities Extremities Exam: POSITIVE: No Clubbing Present, No Edema Present, No Cyanosis Present - Back Back Exam: POSITIVE: No CVA Tenderness - Neurological Neurological Exam: POSITIVE: Alert, Oriented x 3, No Facial Droop, Speech Intact / Clear, Moves All Extremities Equally - Psychiatric Psychiatric Exam: POSITIVE: Normal Affect, Normal Mood Results - Labs Additional Lab Results: Laboratory Results 06/16/18 12:15 Troponin I 0.048 H 09/22/11 06/16/18 06/16/18 08:00 05:10 05:10 WBC 8.82 Hgb 8.6 L RDW 12.9 Plt Count 317 Neut % (Auto) 66.0 PT 10.2 INR 1.00 Sodium Potassium Chloride Carbon Dioxide Anion Gap BUN Creatinine BUN/Creatinine Ratio Glucose Calculated Osmolality Calcium Magnesium Total Bilirubin AST ALT Alkaline Phosphatase Lactate Dehydrogenase Troponin I NT-Pro-B Natriuret Pep Total Protein Albumin Globulin Albumin/Globulin Ratio 06/16/18 06/16/18 06/16/18 05:10 12:15 15:41 WBC Hgb RDW Plt Count Neut % (Auto) PT INR Sodium 137 Potassium 4.6 Chloride 106 Carbon Dioxide 28 Anion Gap 3 L BUN 23 H Creatinine 1.9 H BUN/Creatinine Ratio 12.10 Glucose 80 Calculated Osmolality 286.0 Calcium 8.7 Magnesium 1.9 Total Bilirubin 0.3 AST 22 ALT 28 Alkaline Phosphatase 64 Lactate Dehydrogenase 598 Troponin I 0.048 H NT-Pro-B Natriuret Pep 66102 H Total Protein 4.6 L Albumin 2.4 L Globulin 2.2 L Albumin/Globulin Ratio 1.00 L - EKG Data -: EKG Interpreted by Me - EKG Data EKG Interpretation: Other (Atrial fibrillation) - Imaging Status: Image Reviewed by Me (Chest x-ray done today shows some my view, probable cardiomegaly, bilateral effusions, cannot tell that there might be a right middle lobe infiltrate) AFib Stroke Risk Screening - AFib Stroke Risk (CHADS-VASc) Atrial Fibrillation Ischemic Stroke Risk Factors: Congestive Heart Failure, Hypertension, Female (Patient is high risk for stroke. I will discuss with patient, and her daughter. Given her age, fall risk, it might be best to consider aspirin for stroke prevention, but again we'll discuss further.) CHADS-VASc Score (A-Fib Stroke Risk Score): 3 CHADS-VASc Risk: High Risk Assessment and Plan - Patient Problems (1) Acute congestive heart failure Current Visit: Yes Status: Acute Code(s): I50.9 - Heart failure, unspecified Qualifiers: Heart failure type: unspecified Qualified Code(s): I50.9 - Heart failure, unspecified (2) Chronic kidney disease, stage III (moderate) Current Visit: Yes Status: Acute Code(s): N18.3 - Chronic kidney disease, stage 3 (moderate) (3) Closed right hip fracture Current Visit: No Status: Acute Code(s): S72.001A - Fracture of unspecified part of neck of right femur, initial encounter for closed fracture Qualifiers: Fracture healing: with routine healing (4) COPD (chronic obstructive pulmonary disease) Current Visit: Yes Status: Acute Code(s): J44.9 - Chronic obstructive pulmonary disease, unspecified Qualifiers: COPD type: emphysema Emphysema type: unspecified Qualified Code(s): J43.9 - Emphysema, unspecified (5) Hypertension Current Visit: Yes Status: Acute Code(s): I10 - Essential (primary) hypertension Qualifiers: Hypertension type: essential hypertension Qualified Code(s): I10 - Essential (primary) hypertension (6) Hypercholesterolemia Current Visit: Yes Status: Acute Code(s): E78.0 - Pure hypercholesterolemia - Assessment / Plan Additional Assessment/Plan Details: Admit the patient to the acute bed here in the hospital. Start Lasix 80 mg IV twice a day and replace with potassium as well. Check labs in morning and trend troponins over the next 12 hours to 18 hours or so. Given presence of atrial fibrillation I'll discuss stroke prevention with patient and her daughter. I think the patient would benefit from a thoracentesis as the right-sided effusion is quite large. In discussion with the patient and her daughter, they agree. I discussed risks and benefits in depth. See this procedure note separate and unique of this visit. We'll continue PT and OT. Oxygen as indicated. I'll get an echocardiogram on Wednesday if possible. I think that the aortic insufficiency is probably worse. We'll continue beta jakub although this technically class III to class for [place] [employer] congestive heart failure as I think it may benefit her overall. Given renal failure, hold off on spironolactone. Hold off on any SANTA inhibitor or angiotensin receptor jakub given chronic kidney disease but continue afterload reduction with hydralazine. Patient is DO NOT RESUSCITATE.
--- NOTE | 2018-06-16 16:22 | PROCEDURE1 ---
Procedure - - Date and Time of Service: 06/16/2017, 1620 Procedure Performed: Thoracentesis : Plerual Drainage w/Indwelling Catheter with Imaging Procedure Note: Procedure performed: Thoracentesis right side Indication for procedure: Acute congestive heart failure with large pleural effusion, recent pneumonia, unknown if parapneumonic effusion or not. Description of procedure: Ultrasound guidance was used to isolate the best place to perform thoracentesis. On the right side of patient, midclavicular line, at about the T-10 rib, a pocket of fluid was noted somewhat medially. The patient's back was marked to identify location. The distance from skin to mid pleural fluid measured. The patient was prepped with chlorhexidine and was draped in the usual fashion. Local anesthesia was achieved with 1% lidocaine, and approximately 5 mL was administered. A needle was attached to a 10 mL syringe and was inserted superior to the 10th rib into the pleural space. Once the pleural space was confirmed with drawback on the needle with the syringe, a #10 blade was used to perform a small dermatotomy. A large-bore needle inserted into a catheter was inserted into the pleural space with a 60 mL syringe attached. Pleural fluid w as noted in the 60 mL syringe. It was yellow and clear. The needle was removed from the catheter, and the needle was withdrawn from the pleural space, as the catheter was advanced into the pleural space. T A total of 20 mL pleural fluid was withdrawn. The pleural catheter was then attached to a Vacutainer, and a total of 1520 mL of pleural fluid was removed. Pleural fluid was sent for studies. The catheter was then withdrawn and the area was dressed with gauze and Tegaderm. The patient tolerated the procedure well. There were no apparent complications. A post procedure chest X-ray was done and there was on my view, it appears that the effusion is now resolved, and I don't know for sure if there is a pneumothorax as her appears to be lung markings all the way to the chest wall, but there appears to be a linear line that could be consistent with potential loculated pneumothorax or otherwise. I reviewed this with radiology. We got a CT scan of the chest to look further and I do not see any evidence of a pneumothorax on that and I am awaiting the radiology study. The patient has no clinical symptoms of a pneumothorax. Estimated blood loss: None Anesthesia: Local Disposition: Patient remains admitted to the hospital
--- NOTE | 2018-06-16 17:29 | DI ---
XR CXR 1VW 06/16/2018 3:50 PM HISTORY: [facility] [place]ural effusion, s/p thoracentesis, ? PTX Comparison: Portable chest x-ray from earlier the same day. Findings/Impression: A single portable frontal view of the chest is submitted. The lungs remain hyperinflated. The previously noted right pleural effusion is smaller. There is now a linear edge along the peripheral aspect of the right lung, although lung markings extend beyond the edge to the chest wall. Differential considerations include artifact versus pneumothorax. A small le ft pleural effusion likely persists. Patchy bibasilar opacities are noted The cardiomediastinal silho uette remains enlarged and the pulmonary vasculature remains mildly increased. The remainder of the e xam is not significantly changed.
[2018-06-16] MEDS: FUROSEMIDE 10 MG/1 ML - 4 ML IVP SCH (19:31)
--- NOTE | 2018-06-16 19:45 | DI ---
CT Chest WO Contrast 06/16/2018 5:09 PM History: [facility] [place] ^possible pneumothorax right side Comparison: Chest x-ray from earlier the same day. Technique: Noncontrast CT images through the chest were obtained for review in the axial, sagittal, a nd coronal planes. Findings: Evaluation of the lungs demonstrates no pneumothorax. The suspicious finding on recent ches t radiograph was likely artifact. Emphysematous changes are present bilaterally. There is biapical pl eural-parenchymal scarring. There is also bibasilar scar versus atelectasis. There is no dense consol idation. There are moderate left and small right pleural effusions. An 8 mm pulmonary nodule is noted in the anterior left upper lobe on series 2 image 48. There is mild diffuse bronchial wall thickening with no endobronchial lesion. There are shotty medias tinal lymph nodes, not pathologically enlarged by CT size criteria. Calcifications in the left hilum most likely the sequela of prior granulomatous infection. The aorta and pulmonary vessels demonstrate normal course and caliber. There are atheromatous aortic and coronary artery calcifications. Heart s ize is within normal limits with no pericardial effusion. There is a 1.8 cm hypoattenuating nodule in the enlarged left thyroid lobe. There is a moderate-sized hiatal hernia. There is diffuse demineralization of the osseous structures with multilevel degenerative disc disease . There is age-indeterminate anterior compression deformity of T12. Surgical clips are noted in the gallbladder fossa. The visualized upper abdominal structures are myron sly normal. Impression: 1. There is no pneumothorax. The suspicious finding on the recent chest radiograph was most likely ar tifact. 2. Bilateral emphysematous biapical pleural-parenchymal scarring. 3. Moderate left and small right pleural effusions. 4. There is an 8 mm pulmonary nodule in the left upper lobe. Fleischner Society 2017 guidelines for m anagement of incidentally detected pulmonary nodules is as follows: Single solid lung nodule greater than 8 mm: Low or high risk: Consider CT, PET/CT, or tissue sampling at 3 months. 5. Mild diffuse bronchial wall thickening, a finding associated with acute or chronic bronchitis. 6. Hypoattenuating left thyroid nodule. A dedicated thyroid ultrasound may be obtained for further ch aracterization.
[2018-06-16] MEDS: FLUTICASONE/SALMETEROL 250/50 UD INHALER INH SCH (19:48)
[2018-06-16] MEDS: METOPROLOL SUCCINATE 25 MG SR 24H TABLET PO SCH (20:58)
[2018-06-16] MEDS: Pravastatin Tab 40 MG TAB PO SCH (20:58)
[2018-06-16] MEDS: HEPARIN 5000 UNIT/1 ML SUBCUT SCH (20:58)
[2018-06-16] MEDS: FERROUS GLUCONATE 324 MG TABLET PO SCH (20:58)
[2018-06-17] MEDS: LEVALBUTEROL HCL 1.25 MG/3 ML NEB PRN (06:23)
[2018-06-17] MEDS: FLUTICASONE/SALMETEROL 250/50 UD INHALER INH SCH ×2 (06:26→18:49)
[2018-06-17] MEDS: FUROSEMIDE 10 MG/1 ML - 4 ML IVP SCH ×2 (07:03→19:25)
[2018-06-17] MEDS: Sertraline Tab 50 MG TAB PO SCH (08:10)
[2018-06-17] MEDS: FERROUS GLUCONATE 324 MG TABLET PO SCH ×2 (08:10→20:45)
[2018-06-17] MEDS: CHOLECALCIFEROL 1000 IU TABLET PO SCH (08:10)
[2018-06-17] MEDS: CALCITRIOL 0.25 MCG CAPSULE PO SCH (08:10)
[2018-06-17] MEDS: ASPIRIN EC 81 MG TABLET PO SCH (08:10)
[2018-06-17] MEDS: POTASSIUM CHLORIDE 20 MEQ TAB PO SCH (08:10)
[2018-06-17] MEDS: HEPARIN 5000 UNIT/1 ML SUBCUT SCH ×2 (08:10→20:45)
[2018-06-17 09:42] LABS: BLOOD UREA NITROGEN 23 mg/dL (7-22)
[2018-06-17] MEDS ORDERED: LIDOCAINE 2% 20 MG/ML - 20 ML VIAL ONE (11:29)
--- NOTE | 2018-06-17 13:09 | DI ---
AP CHEST X-RAY, 06/17/2018 11:19 AM : Clinical History: Left pleural effusion. Previous Exam: 06/06/2017;06/16/2018 at 0646 hours; 06/16/2018 at 1549 hours. Comparison is also made w ith a CT scan of the chest from 06/16/2018. Soft Tissues: No acute soft tissue abnormality. Bones: Normal. Heart: Cardiomegaly. Interstitial markings are more prominent than on the later film obtained on 06/16, consistent with CHF superimposed on chronic interstitial lung disease. Lungs: No infiltrates. No pneumothorax. Effusion(s): Small left pleural effusion. Mediastinum: Normal mediastinum. Nodules: No pulmonary nodules. Reading: Cardiomegaly with CHF. Small left pleural effusion. No pneumothorax.
--- NOTE | 2018-06-17 16:55 | DI ---
US Needle Placement Guidance 06/17/2018 3:26 PM HISTORY: [facility] – [place] ^left pleural effusion, thoracentesis Comparison: US needle placement guidance 06/16/2018. Findings/ Impression: Targeted najera scale and color doppler ultrasound of the left chest wall demonst rates moderate to large left pleural effusion. The examination was performed in support of Internal M edicine for thoracentesis.
--- NOTE | 2018-06-17 17:07 | DI ---
XR CXR 1VW 06/17/2018 4:33 PM HISTORY: [facility] [place] ^left thoracentesis, question pneumothorax Comparison: Chest x-ray from earlier the same day. Findings/Impression: A single portable frontal view of the chest is submitted. Images demonstrate hyperinflation with patchy bibasilar opacities that could represent atelectasis ve rsus early airspace disease. Small bilateral pleural effusions are likely present. There is no large pneumothorax. The cardiomediastinal silhouette is enlarged with increased pulmonary vasculature that could represent technique versus pulmonary edema in the setting of heart failure. There are atheromat ous calcifications in the arch of the thoracic aorta. The osseous structures are not significantly ch anged Impression: No radiographic evidence of acute cardiopulmonary disease.
--- NOTE | 2018-06-17 17:08 | DI ---
XR KNEE 1 OR 2 VWS 06/17/2018 4:33 PM History: [facility] [place]compression [place] left knee Comparison: None. Findings: Portable AP and crosstable lateral views of the left knee show normal anatomic alignment wi thout fracture or dislocation. There is tricompartmental subchondral sclerosis with early marginal os teophyte formation. There is a subchondral cyst along the articular surface of the patella. No suprap atellar joint effusion is present. Atheromatous calcifications are present in the distribution of the vasculature. Impression: 1. No acute osseous abnormality. 2. Early tricompartmental osteoarthritis.
[2018-06-17 17:18] LABS: WBC, BODY FLUID 0.501 10*3/uL
[2018-06-17 17:27] LABS: TOTAL PROTEIN,BODY FLUID < 2.0 g/dL
--- NOTE | 2018-06-17 17:42 | PDOC(PROG) ---
Date of Service: 06/17/18 Time of Service: 17:37 Interval History: No completes of chest pain. Breathing she states is about the same as it was post thoracentesis yesterday. She is agreeable to having fluid taken off. On the left. No nausea or vomiting. Still just feels weak and tired. Objective : Data - Labs CBC and BMP: 06/17/18 04:57 Objective : Exam - General General Appearance: No Acute Distress, Cooperative Additional General Exam Details: Vital Signs - Last Taken Temperature 98.7 F 06/17/18 17:00 Pulse Rate 78 06/17/18 17:00 Respiratory Rate 20 06/17/18 17:00 Blood Pressure 152/41 06/17/18 17:00 Pulse Ox 96 06/17/18 17:00 - Eye Eye Exam: No Scleral Icterus - ENT ENT Exam: Mucous Membranes Moist - Neck Neck Exam: JVP is not Raised - Respiratory Respiratory Exam: Breathing Non Labored, Decreased Breath Sounds (In the bases), Coarse Breath Sounds - Cardiovascular Cardiovascular Exam: No Murmur, No Clicks, No Gallops, No Rubs, Irregular Rhythm, No JVD - GI/Abdominal GI/Abdominal Exam: Normal Bowel Sounds, Non Tender, Non Distended, Soft - Rectal Rectal Exam: Deferred - External Exam: Deferred - Extremities Extremities Exam: No Clubbing Present, No Edema Present, No Cyanosis Present - Neurological Neurological Exam: Alert, Oriented x 3, No Facial Droop, Speech Intact / Clear, Moves All Extremities Equally - Psychiatric Psychiatric Exam: Normal Affect, Normal Mood Assessment and Plan - Patient Problems (1) Acute congestive heart failure Current Visit: Yes Status: Acute Code(s): I50.9 - Heart failure, unspecified Qualifiers: Heart failure type: unspecified Qualified Code(s): I50.9 - Heart failure, unspecified (2) Chronic kidney disease, stage III (moderate) Current Visit: Yes Status: Acute Code(s): N18.3 - Chronic kidney disease, stage 3 (moderate) (3) Closed right hip fracture Current Visit: No Status: Acute Code(s): S72.001A - Fracture of unspecified part of neck of right femur, initial encounter for closed fracture Qualifiers: Fracture healing: with routine healing (4) COPD (chronic obstructive pulmonary disease) Current Visit: Yes Status: Acute Code(s): J44.9 - Chronic obstructive pulmonary disease, unspecified Qualifiers: COPD type: emphysema Emphysema type: unspecified Qualified Code(s): J43.9 - Emphysema, unspecified (5) Hypertension Current Visit: Yes Status: Acute Code(s): I10 - Essential (primary) hypertension Qualifiers: Hypertension type: essential hypertension Qualified Code(s): I10 - Essential (primary) hypertension (6) Hypercholesterolemia Current Visit: Yes Status: Acute Code(s): E78.0 - Pure hypercholesterolemia - Assessment / Plan Additional Assessment/Plan Details: I think we should continue Lasix twice a day. I do think the patient would benefit from thoracentesis on the left side as well as there is a fairly large pleural effusion on chest x-ray there as well. We'll test for any growth of bacteria in the left-sided pleural effusion as well. Negative on the right so far. Labs in a.m. PT and OT. I'm covering the patient with DVT prophylaxis with heparin subcutaneous. 28-35 days postoperatively. I'm hopeful that we can get the acute congestive heart failure under good control over the next 24-48 hours and that hopefully get back to swing bed for additional PT and OT for the hip fracture recovery. Discussed at length with patient and daughter. Again, aspirin for stroke prevention with atrial fibrillation. Both the daughter and the patient agreed with this.
--- NOTE | 2018-06-17 17:59 | PROCEDURE1 ---
Procedure - - Date and Time of Service: 06/17/2017, 1630 Procedure Performed: Thoracentesis : With Imaging Guidance Procedure Note: Procedure performed: Thoracentesis left side Indication for procedure: Left sided pleural effusion Description of procedure: Ultrasound guidance was used to isolate the best place to perform thoracentesis. On the left, medial to midclavicular line, at about the T-10 rib, a pocket of fluid was noted. I utilized real-time ultrasound to guide my needle into the fluid pocket at bedside.. The patient was initially prepped with chlorhexidine and was draped in the usual fashion. Local anesthesia was achieved with 1% lidocaine, and approximately 15 mL was administered total for local anesthesia creating a skin wheel and then numbing around the pleura. AOnce the pleural space was confirmed with drawback on the needle with the syringe, a #10 blade was used to perform a dermatotomy. A large-bore needle with a surrounding catheter was inserted into the pleural fluid. Pleural fluid was noted in the 60 mL syringe. It was yellow and straw-colored and clear. The catheter was then inserted over the needle, and the needle was withdrawn from the pleural space. A total of 60 mL pleural fluid was withdrawn. The pleural catheter was then attached to a Vacutainer, and a total of 410 mL of pleural fluid was removed. Pleural fluid was sent for studies. The catheter was then withdrawn and the are a was dressed with gauze and Tegaderm. The patient tolerated the procedure well. There were no apparent complications. A post procedure chest X-ray was done and there was significant resolution of the left-sided pleural effusion along with no evidence of pneumothorax. As I try to reposition the patient in bed post procedure, I hit her left knee with the bed rail and did a left knee x-ray and there is no evidence of fracture. Estimated blood loss: None Anesthesia: Local Disposition: Patient remains admitted for management of congestive heart failure
[2018-06-17] MEDS ORDERED: ACETAMINOPHEN 325 MG TABLET PO PRN (19:12)
[2018-06-17] MEDS: Pravastatin Tab 40 MG TAB PO SCH (20:44)
[2018-06-17] MEDS: METOPROLOL SUCCINATE 25 MG SR 24H TABLET PO SCH (20:45)
[2018-06-18 04:48] LABS: BLOOD UREA NITROGEN 26 mg/dL (7-22); SERUM ALBUMIN 2.5 g/dL (3.5-4.8)
[2018-06-18] MEDS: LEVALBUTEROL HCL 1.25 MG/3 ML NEB PRN ×2 (06:13→18:53)
[2018-06-18] MEDS: FLUTICASONE/SALMETEROL 250/50 UD INHALER INH SCH ×2 (06:15→18:54)
[2018-06-18] MEDS: FUROSEMIDE 10 MG/1 ML - 4 ML IVP SCH ×2 (06:50→19:00)
[2018-06-18] MEDS: POTASSIUM CHLORIDE 20 MEQ TAB PO SCH (08:52)
[2018-06-18] MEDS: CHOLECALCIFEROL 1000 IU TABLET PO SCH (08:52)
[2018-06-18] MEDS: FERROUS GLUCONATE 324 MG TABLET PO SCH ×2 (08:53→20:50)
[2018-06-18] MEDS: HEPARIN 5000 UNIT/1 ML SUBCUT SCH ×2 (08:53→20:50)
[2018-06-18] MEDS: CALCITRIOL 0.25 MCG CAPSULE PO SCH (08:53)
[2018-06-18] MEDS: ASPIRIN EC 81 MG TABLET PO SCH (08:53)
[2018-06-18] MEDS: Sertraline Tab 50 MG TAB PO SCH (08:53)
--- NOTE | 2018-06-18 11:02 | PDOC(PROG) ---
Interval History: The patient has no complaints at present time. I did explain her everything that has been going on in the hospital since she told me that she her memory is not well and does not remember anything that it will she was told yesterday. Denies chest pain nausea or vomiting Objective : Data - Labs CBC and BMP: 06/18/18 04:19 Objective : Exam - General General Appearance: Cooperative - Respiratory Respiratory Exam: Decreased Breath Sounds - Cardiovascular Cardiovascular Exam: RRR, No Murmur, No Clicks, No Gallops, No Rubs, PMI Non- Displaced - GI/Abdominal GI/Abdominal Exam: Normal Bowel Sounds, Non Tender, Non Distended, Soft, No Masses, No Hepatomegaly, No Splenomegaly, No Organomegaly - Extremities Extremities Exam: No Clubbing Present, No Edema Present, No Cyanosis Present Assessment and Plan - Patient Problems (1) Acute congestive heart failure Current Visit: Yes Status: Acute Comment: We'll continue IV Lasix 80 twice a day monitor BUN and creatinine discussed the case with Dr. Pierre my colleague which discussed the case with the family members daughter and the son-in-law they're not interested for any further interventional workup by cardiology and are wanting to be managed medically to the best of our ability I agree with this nursing in the room when patient evaluated Code(s): I50.9 - Heart failure, unspecified Qualifiers: Heart failure type: unspecified Qualified Code(s): I50.9 - Heart failure, unspecified (2) COPD (chronic obstructive pulmonary disease) Current Visit: Yes Status: Acute Comment: Stable at present time continue current meds Code(s): J44.9 - Chronic obstructive pulmonary disease, unspecified Qualifiers: COPD type: emphysema Emphysema type: unspecified Qualified Code(s): J43.9 - Emphysema, unspecified (3) Hypertension Current Visit: Yes Status: Acute Comment: Stable at present time Code(s): I10 - Essential (primary) hypertension Qualifiers: Hypertension type: essential hypertension Qualified Code(s): I10 - Essential (primary) hypertension (4) Hypercholesterolemia Current Visit: Yes Status: Acute Code(s): E78.0 - Pure hypercholesterolemia (5) Closed right hip fracture Current Visit: No Status: Acute Comment: Continue PTOT Code(s): S72.001A - Fracture of unspecified part of neck of right femur, initial encounter for closed fracture Qualifiers: Fracture healing: with routine healing (6) Chronic kidney disease, stage III (moderate) Current Visit: Yes Status: Acute Code(s): N18.3 - Chronic kidney disease, stage 3 (moderate)
[2018-06-18] MEDS: Pravastatin Tab 40 MG TAB PO SCH (20:50)
[2018-06-18] MEDS: METOPROLOL SUCCINATE 25 MG SR 24H TABLET PO SCH (20:50)
[2018-06-19 05:01] LABS: BLOOD UREA NITROGEN 26 mg/dL (7-22); BUN/CREATININE RATIO 12.38 (6-20); SERUM ALBUMIN 2.6 g/dL (3.5-4.8)
[2018-06-19] MEDS: FLUTICASONE/SALMETEROL 250/50 UD INHALER INH SCH ×2 (07:14→18:52)
[2018-06-19] MEDS: FUROSEMIDE 10 MG/1 ML - 4 ML IVP SCH (08:12)
[2018-06-19] MEDS: FERROUS GLUCONATE 324 MG TABLET PO SCH ×2 (09:50→20:40)
[2018-06-19] MEDS: HEPARIN 5000 UNIT/1 ML SUBCUT SCH ×2 (09:50→20:40)
[2018-06-19] MEDS: CHOLECALCIFEROL 1000 IU TABLET PO SCH (09:50)
[2018-06-19] MEDS: Sertraline Tab 50 MG TAB PO SCH (09:51)
[2018-06-19] MEDS: ASPIRIN EC 81 MG TABLET PO SCH (09:51)
[2018-06-19] MEDS: CALCITRIOL 0.25 MCG CAPSULE PO SCH (09:51)
[2018-06-19] MEDS: POTASSIUM CHLORIDE 20 MEQ TAB PO SCH (09:52)
--- NOTE | 2018-06-19 10:01 | PDOC(PROG) ---
Interval History: Doing well no complaints no chest pain nausea or vomiting Objective : Data - Labs CBC and BMP: 06/19/18 04:26 Objective : Exam - Head Head Exam: Normal Inspection - Respiratory Respiratory Exam: Decreased Breath Sounds - Cardiovascular Cardiovascular Exam: RRR, No Murmur, No Clicks, No Gallops, No Rubs, PMI Non- Displaced - GI/Abdominal GI/Abdominal Exam: Normal Bowel Sounds, Non Tender, Non Distended, Soft, No Masses, No Hepatomegaly, No Splenomegaly, No Organomegaly Assessment and Plan - Patient Problems (1) Acute congestive heart failure Current Visit: Yes Status: Acute Comment: Resolved patient has been diuresed. And bilateral thoracentesis done. Her BUN/creatinine are starting to go up I will back off on the high-dose Lasix go back down to 20 by mouth twice a day hopefully this will keep her congestive heart failure stable I discussed this with family. We are going to do medical management to the best of our abilities. They do know that the patient could go back into A. fib or congestive heart failure and any time at this point. We will transfer back to swing bed for her to continue her rehabilitation for her right hip Code(s): I50.9 - Heart failure, unspecified Qualifiers: Heart failure type: unspecified Qualified Code(s): I50.9 - Heart failure, unspecified (2) COPD (chronic obstructive pulmonary disease) Current Visit: Yes Status: Acute Comment: Stable at present time Code(s): J44.9 - Chronic obstructive pulmonary disease, unspecified Qualifiers: COPD type: emphysema Emphysema type: unspecified Qualified Code(s): J43.9 - Emphysema, unspecified (3) Hypertension Current Visit: Yes Status: Acute Comment: Stable Code(s): I10 - Essential (primary) hypertension Qualifiers: Hypertension type: essential hypertension Qualified Code(s): I10 - Essential (primary) hypertension (4) Hypercholesterolemia Current Visit: Yes Status: Acute Code(s): E78.0 - Pure hypercholesterolemia (5) Closed right hip fracture Current Visit: No Status: Acute Comment: Deferred to PT OT Code(s): S72.001A - Fracture of unspecified part of neck of right femur, initial encounter for closed fracture Qualifiers: Fracture healing: with routine healing (6) Chronic kidney disease, stage III (moderate) Current Visit: Yes Status: Acute Comment: BUN/creatinine rising stop Lasix 80 twice a day go back down to 20 twice a day unfortunately patient needs diuresis considering her heart failure Code(s): N18.3 - Chronic kidney disease, stage 3 (moderate)
[2018-06-19] MEDS: FUROSEMIDE 20 MG TABLET PO SCH (13:40)
[2018-06-19] MEDS: LEVALBUTEROL HCL 1.25 MG/3 ML NEB PRN (18:51)
[2018-06-19] MEDS: METOPROLOL SUCCINATE 25 MG SR 24H TABLET PO SCH (20:40)
[2018-06-19] MEDS: Pravastatin Tab 40 MG TAB PO SCH (20:40)
[2018-06-20] MEDS: FLUTICASONE/SALMETEROL 250/50 UD INHALER INH SCH (06:43)
[2018-06-20 06:51] VITALS: BP 129/54; RESP 16; TEMP 97.7
[2018-06-20 06:55] VITALS: O2SAT 94
[2018-06-20] MEDS: HEPARIN 5000 UNIT/1 ML SUBCUT SCH (08:38)
[2018-06-20] MEDS: ASPIRIN EC 81 MG TABLET PO SCH (08:40)
[2018-06-20] MEDS: FUROSEMIDE 20 MG TABLET PO SCH (08:40)
[2018-06-20] MEDS: FERROUS GLUCONATE 324 MG TABLET PO SCH (08:40)
[2018-06-20] MEDS: Sertraline Tab 50 MG TAB PO SCH (08:40)
[2018-06-20] MEDS: CHOLECALCIFEROL 1000 IU TABLET PO SCH (08:40)
[2018-06-20] MEDS: CALCITRIOL 0.25 MCG CAPSULE PO SCH (08:40)
[2018-06-20] MEDS: POTASSIUM CHLORIDE 20 MEQ TAB PO SCH (08:41)
[2018-06-20 09:59] LABS: BLOOD UREA NITROGEN 26 mg/dL (7-22); BUN/CREATININE RATIO 12.38 (6-20); SERUM ALBUMIN 3.2 g/dL (3.5-4.8)
--- NOTE | 2018-06-20 10:43 | DCSUMMARY ---
Hospitalization Summary Hospital Course: Final Discharge Diagnosis: Current Visit Problems Problem Status Onset Code Acute congestive heart failure Acute I50.9 Chronic kidney disease, stage III (moderate) Acute N18.3 COPD (chronic obstructive pulmonary disease) Acute J44.9 Hypertension Acute I10 Hypercholesterolemia Acute E78.0 Diagnostic Data, Laboratory Data, and Procedures of Signifigance: Laboratory Results 06/20/18 09:38 Sodium 133 L Potassium 5.0 Chloride 95 L Carbon Dioxide 30 Anion Gap 8 BUN 26 H Creatinine 2.1 H Estimated GFR Elevator Examiner BUN/Creatinine Ratio 12.38 Glucose 164 H Calculated Osmolality 284.0 Calcium 8.9 Total Bilirubin 0.4 AST 47 H ALT 27 Alkaline Phosphatase 74 Total Protein 5.5 L Albumin 3.2 L Globulin 2.3 L Albumin/Globulin Ratio 1.30 History and Physical pertinent to Admission: Past Medical History Medical History: 1. Hypertension. 2. COPD. 3. Allergies. 4. hypercholesterolemia. 5. depression. 6. History of acute on chronic renal failure was transferred to [facility] in 2015. 7. Chronic renal failure, baseline creatinine around 1.9 or so. 8. Admission in May 2017 secondary to pneumonia that caused respiratory failure ended up on a ventilator was transferred to [facility]. 9. Osteoporosis. 10. Recently diagnosed atrial fibrillation that appears to be chronic and intermittent not on any anticoagulants therapy as of yet. Surgical History: Appendectomy gallbladder removal, surgery on her right foot Family History: Reviewed an Not Pertinent Pertinent Family History: Mother of stomach cancer Past Social History: She used to smoke quit 3 years ago, rarely drinks, no drugs. Lives by herself. Her daughter, Cat, is her power of litigation attorney. Tobacco Use: Former Smoker (Quit 3 years ago) Course of Hospitalization: Is a very nice 87-year-old female with the history of aortic insufficiency, paroxysmal and intermittent atrial fibrillation was admitted with a hip fracture transferred to [place] because of positive troponins was placed on Lasix 20 twice a day in [place] the patient was short of breath up there even on the Lasix and unable to do any physical activity was treated for pneumonia at [facility] was transferred here for rehabilitation my colleague admitted her for bilateral pleural effusions. These were tapped also was put on high-dose Lasix with great diuresis patient is back to her normal self cannot be discharged us in bed to continue her therapy. Patient and patient's family would not like to go to [place] and will like medical management at this facility to the best of our ability. With no further invasive interventions On the date of discharge, the patient was examined: Gen.: No acute distress, alert, nontoxic Heart: Regular rate and rhythm, no murmurs, clicks, gallops, or rubs Lungs: Clear to auscultation bilaterally, breathing is nonlabored Abdomen/GI: Normal tones on auscultation, soft, nontender, nondistended Musculoskeletal/extremities: No clubbing, cyanosis, or edema Vitals reviewed and are listed below Vital Signs (24 hrs) 06/19/18 10:49 06/19/18 11:00 06/19/18 11:05 Temperature 97.1 F Pulse Rate 78 Pulse Rate [Pulse Oximeter] 77 Respiratory Rate 18 Blood Pressure [Left Arm] 143/47 Blood Pressure [Right Arm] Pulse Ox 96 96 06/19/18 15:00 06/19/18 15:36 06/19/18 18:30 Temperature 97.5 F Pulse Rate 79 Pulse Rate [Pulse Oximeter] 72 72 Respiratory Rate 18 18 Blood Pressure [Left Arm] Blood Pressure [Right Arm] 148/49 Pulse Ox 97 97 06/19/18 18:51 06/19/18 18:52 06/19/18 18:59 Temperature Pulse Rate 80 76 Pulse Rate [Pulse Oximeter] Respiratory Rate 18 18 Blood Pressure [Left Arm] Blood Pressure [Right Arm] Pulse Ox 97 98 97 06/19/18 19:00 06/19/18 21:00 06/19/18 23:00 Temperature 98.5 F Pulse Rate 77 79 Pulse Rate [Pulse Oximeter] 76 Respiratory Rate 20 Blood Pressure [Left Arm] 146/51 Blood Pressure [Right Arm] Pulse Ox 93 94 98 06/20/18 00:46 06/20/18 03:00 06/20/18 04:05 Temperature 98.6 F Pulse Rate 78 Pulse Rate [Pulse Oximeter] 78 Respiratory Rate 20 Blood Pressure [Left Arm] Blood Pressure [Right Arm] Pulse Ox 98 98 95 06/20/18 04:47 06/20/18 06:48 06/20/18 06:55 Temperature 97.6 F 97.7 F Pulse Rate Pulse Rate [Pulse Oximeter] 88 73 Respiratory Rate 18 16 Blood Pressure [Left Arm] 147/46 Blood Pressure [Right Arm] 129/54 Pulse Ox 93 90 94 Assessment and Plan: 1. As per discharge assessments above 2. Disposition: Swing bed for rehabilitation 3. Condition on discharge, stable and improved. 4. Diet: regular diet 5. Activities: resume normal activities as per PT and OT 6. Follow-Up: 1. PCP 2. 7. Medications at the Time of Discharge: Home Medications Medication Instructions Recorded Confirmed Type calcitriol 0.25 mcg capsule 0.25 mcg PO QDAY #90 cap 03/30/17 06/04/18 Rx calcium carbonate 300 mg (750 mg) 300 mg PO QDAY tab 03/30/17 06/04/18 History chewable tablet cholecalciferol (vitamin D3) 2,000 2,000 unit PO QDAY #90 cap 03/30/17 06/04/18 History unit capsule Amlodipine Besylate 10 mg PO QDAY #90 tab 06/12/17 06/04/18 Rx cetirizine 10 mg capsule 10 mg PO QDAY PRN #30 cap 06/18/17 06/04/18 Rx ferrous gluconate 324 mg (38 mg 324 mg PO BID #60 tab 06/18/17 06/04/18 Rx iron) tablet levalbuterol HFA 45 mcg/actuation 2 puff INH Q4-6H PRN #1 inh 06/18/17 06/04/18 Rx aerosol inhaler metoprolol succinate ER 25 mg 25 mg PO QHS #90 tab 08/25/17 06/04/18 Rx tablet,extended release 24 hr fluticasone 200 mcg-vilanterol 25 1 inh INH QDAY #28 ea 11/25/17 06/04/18 Rx mcg/dose powder for inhalation ipratropium bromide 42 mcg (0.06 2 spray INASL QID #15 ml 11/25/17 06/04/18 Rx %) nasal spray donepezil 5 mg tablet 5 mg PO QDAY #90 tab 03/31/18 06/04/18 Rx hydralazine 100 mg tablet 100 mg PO BID tab 03/31/18 06/04/18 History pravastatin 40 mg tablet 40 mg PO QDAY #90 tab 04/08/18 06/04/18 Rx sertraline 25 mg tablet 25 mg PO QDAY #90 tab 04/08/18 06/04/18 Rx 8. Time, care, counseling and coordination of care for this discharge is greater than 30 minutes. Exam - Vitals Vital Signs: Vital Signs Temperature 97.7 F Temperature Source Temporal Artery Scan Pulse Rate [Pulse Oximeter] 73 Pulse Rate 78 Respiratory Rate 16 Blood Pressure [Left Arm] 147/46 Blood Pressure [Right Arm] 129/54 Pulse Ox 94 Oxygen Flow Rate 2 Oxygen Delivery Method Nasal Cannula Height 5 ft Weight 103 lb 9.6 oz Patient Problems - Patient Problem List (1) Acute congestive heart failure Current Visit: Yes Status: Acute Code(s): I50.9 - Heart failure, unspecified Qualifiers: Heart failure type: unspecified Qualified Code(s): I50.9 - Heart failure, unspecified Category: Medical (2) COPD (chronic obstructive pulmonary disease) Current Visit: Yes Status: Acute Code(s): J44.9 - Chronic obstructive pulmonary disease, unspecified Qualifiers: COPD type: emphysema Emphysema type: unspecified Qualified Code(s): J43.9 - Emphysema, unspecified Category: Medical (3) Hypertension Current Visit: Yes Status: Acute Code(s): I10 - Essential (primary) hypertension Qualifiers: Hypertension type: essential hypertension Qualified Code(s): I10 - Essential (primary) hypertension Category: Medical (4) Hypercholesterolemia Current Visit: Yes Status: Acute Code(s): E78.0 - Pure hypercholesterolemia Category: Medical (5) Closed right hip fracture Current Visit: No Status: Acute Code(s): S72.001A - Fracture of unspecified part of neck of right femur, initial encounter for closed fracture Qualifiers: Fracture healing: with routine healing Category: Medical (6) Chronic kidney disease, stage III (moderate) Current Visit: Yes Status: Acute Code(s): N18.3 - Chronic kidney disease, stage 3 (moderate) Category: Medical
[2018-06-22 10:00] LABS: SOURCE, BODY FLUID ALBUMIN PLEURAL
== END 2018-06-20 10:56 | disposition swing bed (61) | DRG 292 ==
LOC: MED/SURG 14:28
PROVIDERS: ADMIT Family Medicine; ATTEND Family Medicine